=== PATIENT | male | born 1980 | race Caucasian/White ===

== ENCOUNTER 2017-08-07 16:46 | Emergency (ER) | payer OTHER ==
[2017-08-07] MEDS: KETOROLAC 30 MG INJ IM (19:09)
[2017-08-07] MEDS: traMADol 50 MG TAB PO (19:10)
== END 2017-08-07 19:37 | disposition left against medical advice (07) ==
LOC: FTE 16:46
DX: K42.9 Umbilical hernia without obstruction or gangrene (principal); F17.210 Nicotine dependence, cigarettes, uncomplicated
CPT/HCPCS: 99282; Z7502

== ENCOUNTER 2017-09-21 05:57 | Day surgery (SDC) | payer OTHER ==
[2017-09-21] MEDS ORDERED: BUPIVACAINE 0.5%/EPI 1:200,000 50 ML (MDV) INJ (07:00)
[2017-09-21] MEDS ORDERED: SOD CHLORIDE 0.9% 1,000 ML IV (07:00)
[2017-09-21] MEDS ORDERED: VANCOMYCIN 1 GM 250 ML IVPB (07:00)
[2017-09-21] MEDS: LINEZOLID 600 MG/D5W (PMX) 300 ML IVPB (07:23)
[2017-09-21] MEDS ORDERED: LIDOCAINE 1% (MPF) 30 ML INJ (07:41)
[2017-09-21] MEDS ORDERED: MIDAZOLAM 1 MG/ML 2 ML INJ (08:32)
[2017-09-21] MEDS ORDERED: ROPIVACAINE 0.5 % 30 ML VIAL (09:34)
[2017-09-21] MEDS ORDERED: LIDOCAINE 2% (SDV) 5 ML INJ (09:47)
[2017-09-21] MEDS ORDERED: GLYCOPYRROLATE 0.4 MG INJ (09:47)
[2017-09-21] MEDS ORDERED: PROPOFOL 20 ML (09:47)
[2017-09-21] MEDS ORDERED: ONDANSETRON 4 MG INJ (09:47)
[2017-09-21] MEDS ORDERED: NEOSTIGMINE 3 MG/3 ML SYRINGE (09:47)
[2017-09-21] MEDS ORDERED: ROCURONIUM 50 MG INJ (09:47)
[2017-09-21] MEDS: ONDANSETRON 4 MG INJ IV (10:26)
[2017-09-21] MEDS: MEPERIDINE 25 MG INJ IV ×2 (10:26→11:02)
[2017-09-21] MEDS ORDERED: FENTAnyl 50 MCG/ML VIAL IV (10:30)
[2017-09-21] MEDS ORDERED: HYDROmorphONE (0.2 MG/ML) 10ML SYG IV (10:30)
[2017-09-21] MEDS: HYDROmorphONE (0.2 MG/ML) 10ML SYG IV ×2 (10:40→10:46)
[2017-09-21] MEDS: HYDROCODONE/APAP (5/325) TAB PO (11:50)
[2017-09-21] MEDS ORDERED: LINEZOLID 600 MG/D5W (PMX) 300 ML IVPB (21:00)
== END 2017-09-21 12:15 | disposition home or self-care (01) ==
LOC: SDS 05:57
DX: K43.9 Ventral hernia without obstruction or gangrene (principal); E66.9 Obesity, unspecified; Z68.33 Body mass index [BMI] 33.0-33.9, adult
CPT/HCPCS: 49652; 71045; 93005

== ENCOUNTER 2017-10-17 14:18 | Emergency (ER) | payer OTHER ==
[2017-10-17] MEDS: SOD CHLORIDE 0.9% 1,000 ML IV (16:51)
[2017-10-17] MEDS: ONDANSETRON 4 MG INJ IV ×2 (16:51→19:01)
[2017-10-17] MEDS: morphine 4 MG/ML VIAL IV ×3 (16:51→19:30)
[2017-10-17 17:08] LABS: ADD MAN DIFF? NO
[2017-10-17 17:10] LABS: WHITE BLOOD COUNT 6.8 10^3/ul (4.8-10.8)
[2017-10-17 17:10] LABS: BASOPHILS % 0.4 % (0.0-2.0); EOSINOPHILS # 0.3 10^3/ul (0.0-0.5); EOSINOPHILS % 3.8 % (0.0-7.0); HEMATOCRIT 41.8 % (42.0-52.0); LYMPHOCYTES # 3.2 10^3/ul (0.8-2.9); LYMPHOCYTES % 46.3 % (15.0-51.0); MEAN CORPUSCULAR HEMOGLOBIN 30.6 pg (29.0-33.0); MEAN CORPUSCULAR HGB CONC 33.5 g/dl (32.0-37.0); MEAN CORPUSCULAR VOLUME 91.3 fl (82.0-101.0); MEAN PLATELET VOLUME 9.7 fl (7.4-10.4); MONOCYTE # 0.6 10^3/ul (0.3-0.9); MONOCYTES % 9.1 % (0.0-11.0); NEUTROPHIL # 2.7 10^3/ul (1.6-7.5); PLATELET COUNT 233 10^3/UL (140-415); RED BLOOD COUNT 4.58 10^6/ul (4.70-6.10); RED CELL DISTRIBUTION WIDTH 12.5 % (11.5-14.5)
[2017-10-17 17:16] LABS: ADD UMIC NO; UR ASCORBIC ACID NEGATIVE (NEGATIVE); UR BILIRUBIN (Dip) NEGATIVE (NEGATIVE); UR BLOOD (Dip) NEGATIVE (NEGATIVE); UR CLARITY CLEAR (CLEAR); UR COLOR YELLOW (YELLOW); UR GLUCOSE (Dip) NEGATIVE (NEGATIVE); UR KETONES (Dip) NEGATIVE (NEGATIVE); UR LEUKOCYTE ESTERASE (Dip) NEGATIVE Leu/ul (NEGATIVE); UR NITRITE (Dip) NEGATIVE (NEGATIVE); UR SPECIFIC GRAVITY (Dip) 1.023 (1.003-1.030); UR TOTAL PROTEIN (Dip) NEGATIVE (NEGATIVE); UR UROBILINOGEN (Dip) NEGATIVE (NEGATIVE)
[2017-10-17 17:31] LABS: ALANINE AMINOTRANSFERASE 43 IU/L (13-69); ALBUMIN 3.9 g/dl (3.3-4.9); ALBUMIN/GLOBULIN RATIO 1.14; ALKALINE PHOSPHATASE 73 IU/L (42-121); ANION GAP 13 (8-16); ASPARTATE AMINO TRANSFERASE 28 IU/L (15-46); BILIRUBIN,INDIRECT 0.1 mg/dl (0-1.1); BILIRUBIN,TOTAL 0.1 mg/dl (0.2-1.3); BLOOD UREA NITROGEN 14 mg/dl (7-20); CALCIUM 8.5 mg/dl (8.4-10.2); CARBON DIOXIDE 29 mmol/L (21-31); CHLORIDE 105 mmol/L (97-110); CREATININE 0.87 mg/dl (0.61-1.24); GLUCOSE 93 mg/dl (70-220); LIPASE 228 U/L (23-300); POTASSIUM 4.1 mmol/L (3.5-5.1); SODIUM 143 mmol/L (135-144); TOTAL PROTEIN 7.3 g/dl (6.1-8.1)
[2017-10-17] MEDS: SOD CHLORIDE 0.9% 100 ML (18:47)
[2017-10-17] MEDS: IOHEXOL 300MG/ML 150 ML BTL (20:16)
[2017-10-17] MEDS: CLINDAMYCIN 300 MG INJ IM (20:37)
== END 2017-10-17 20:50 | disposition home or self-care (01) ==
LOC: FTE 14:18
DX: L03.90 Cellulitis, unspecified (principal); Z87.891 Personal history of nicotine dependence
CPT/HCPCS: 36415; 74177; 80053; 81003; 83690; 85025; 96372; 96374; 96375; 96376; 99285-25